=== PATIENT | female | born 1995 | race Two or more races ===

== ENCOUNTER 2017-12-01 19:36 | Emergency (ER) | payer OTHER ==
[2017-12-01 20:35] LABS: KETONE, URINE AUTO RFX NEGATIVE (NEGATIVE); LEUKOCYTE ESTERASE UR AUTO RFX NEGATIVE (NEGATIVE); NITRITE, URINE AUTO RFX NEGATIVE (NEGATIVE); RBC, URINE AUTO RFX 0 /HPF (0-3); SPECIFIC GRAVITY UR AUTO RFX 1.006 (1.002-1.035); SQUAM EPITHELIAL CELL UR AURFX 3 /HPF (0-6); WBC, URINE AUTO RFX 0 /HPF (0-3)
[2017-12-01] MEDS: ACETAMINOPHEN 325 MG TAB PO (21:00)
== END 2017-12-01 22:30 | disposition home or self-care (01) ==
LOC: M ED 19:36
DX: O98.312 Other infections with a predominantly sexual mode of transmission complicating pregnancy, second trimester (principal); O99.89 Other specified diseases and conditions complicating pregnancy, childbirth and the puerperium; R11.0 Nausea; Z3A.19 19 weeks gestation of pregnancy; Z79.899 Other long term (current) drug therapy
CPT/HCPCS: 76811

== ENCOUNTER 2018-03-13 20:05 | Outpatient (CLI) | payer OTHER ==
[2018-03-13] MEDS ORDERED: TERBUTALINE SULFATE 1 MG/ML VIAL (J3105) As Ordered (23:23)
[2018-03-13] MEDS: TERBUTALINE SULFATE 1 MG/ML VIAL (J3105) SC (23:30)
[2018-03-14] MEDS: LR 1,000 ML IV (00:46)
== END 2018-03-14 00:20 | disposition home or self-care (01) ==
LOC: M LDO 20:05
DX: O47.03 False labor before 37 completed weeks of gestation, third trimester (principal); Z3A.32 32 weeks gestation of pregnancy; R41.844 Frontal lobe and executive function deficit; O99.013 Anemia complicating pregnancy, third trimester; O99.353 Diseases of the nervous system complicating pregnancy, third trimester; Z87.51 Personal history of pre-term labor; R87.612 Low grade squamous intraepithelial lesion on cytologic smear of cervix (LGSIL); O99.613 Diseases of the digestive system complicating pregnancy, third trimester; K21.9 Gastro-esophageal reflux disease without esophagitis; O99.283 Endocrine, nutritional and metabolic diseases complicating pregnancy, third trimester; E04.1 Nontoxic single thyroid nodule
CPT/HCPCS: J3105

== ENCOUNTER → 2018-10-24 | Outpatient (REF) | payer OTHER ==
[~2018-10-24] MED LIST: PREN1CAP9 PO
[2018-10-24 22:33] LABS: CHLAMYDIA DNA AMPLIFICATION NEGATIVE (NEGATIVE); GC DNA AMPLIFICATION NEGATIVE (NEGATIVE)
== END ==
LOC: M SFHCLERA 16:21
PROVIDERS: ATTEND Physician Assistant
DX: N89.8 Other specified noninflammatory disorders of vagina (principal)